=== PATIENT | female | born 1970 | race Caucasian/White ===

== ENCOUNTER 2018-04-08 14:55 | Emergency (ER) | payer OTHER ==
[~2018-04-08] VITALS: Ht 165.1 cm; Wt 70.3 kg
[2018-04-08 15:05] VITALS: Ht 165.1 cm; Wt 70.3 kg
[2018-04-09 06:41] VITALS: BP 131/74
== END 2018-04-09 06:41 | disposition home or self-care (01) ==
LOC: ED 14:55
DX: F10.129 Alcohol abuse with intoxication, unspecified (principal); J45.909 Unspecified asthma, uncomplicated; Z86.2 Personal history of diseases of the blood and blood-forming organs and certain disorders involving the immune mechanism; Z88.6 Allergy status to analgesic agent